=== PATIENT | female | born 1975 | race Caucasian/White ===

== ENCOUNTER → 2020-11-15 | Outpatient (CLI) | payer BC | LOC: EXRD 15:00 | DX: R22.1 Localized swelling, mass and lump, neck (principal) | CPT/HCPCS: 76536 ==

== ENCOUNTER → 2020-12-10 | Outpatient (CLI) | payer BC | LOC: CT 13:02 | DX: R22.1 Localized swelling, mass and lump, neck (principal); K14.8 Other diseases of tongue | CPT/HCPCS: 70491; Q9963 ==